=== PATIENT | female | born 1990 | race Two or more races ===

== ENCOUNTER 2018-05-20 15:16 | Emergency (ER) | payer SELFPAY ==
[~2018-05-20] VITALS: Ht 162.6 cm; Wt 86.2 kg
[2018-05-20 15:24] VITALS: BP 129/78
== END 2018-05-20 18:22 | disposition home or self-care (01) ==
LOC: ER 15:16
DX: S30.861A Insect bite (nonvenomous) of abdominal wall, initial encounter (principal); S30.860A Insect bite (nonvenomous) of lower back and pelvis, initial encounter; F17.210 Nicotine dependence, cigarettes, uncomplicated; Z90.49 Acquired absence of other specified parts of digestive tract; Z88.6 Allergy status to analgesic agent; W57.XXXA Bitten or stung by nonvenomous insect and other nonvenomous arthropods, initial encounter; Y93.89 Activity, other specified; Y99.8 Other external cause status; Y92.89 Other specified places as the place of occurrence of the external cause